=== PATIENT | male | born 1975 | race Caucasian/White ===

== ENCOUNTER 2019-04-19 20:09 | Emergency (ER) | payer MEDICAID, OTHER ==
[~2019-04-19] VITALS: Ht 162.6 cm; Wt 78.3 kg
[2019-04-19 20:16] VITALS: Ht 162.6 cm; Wt 78.3 kg
--- NOTE | 2019-04-19 22:13 | ERD ---
ER Documentation Chief Complaint Chief Complaint SWELLING OF L UPPER LIP, FACIAL PAIN X'S 3 DAYS HPI This is a 43-year-old male who presents emergency department with complaints of left upper lip swelling. Stated that this swelling started after he took Ciprodex otic drops that was prescribed by his physician 3 days ago. Denies headache, head injury, loss of consciousness, dizziness, neck pain, neck stiffness, throat pain, difficulty swallowing, difficulty breathing lying flat, shoulder pain, chest pain, back pain, abdominal pain, nausea, vomiting, constipation, diarrhea, urinary symptoms, loss of bowel and bladder control, trauma, injury, falls, difficulty walking due to pain, numbness or tingling sensation, calf pain, recent travel, recent major surgery in the last 3 weeks, calf pain, recent long travel, recent exposure to any illness, recent antibiotic use in the last 3 months, fever, chills, seizures. Past medical history: Surgical history: Social: Denies smoking, use of alcoholic beverages, use of illegal drugs. ROS All systems reviewed and are negative except as per history of present illness. Medications Home Meds Active Scripts Epinephrine (Epipen Jr 2-Diaz) 0.15 Mg/0.3 Ml Pen.injctr, 1 EA INJ ONCE PRN for ALLERGIC REACTION, #1 EA Prov:ALINAJANECHLOE Brandon 04/19/19 Famotidine* (Pepcid*) 20 Mg Tablet, 20 MG PO DAILY for 30 Days, TAB Prov:PASILABANGODWIN F 04/19/19 Ondansetron Hcl* (Zofran*) 4 Mg Tablet, 4 MG PO Q8H PRN for NAUSEA AND/OR VOMITING, #30 TAB Prov:PASMILESJANECHLOE Brandon 04/19/19 Loratadine* (Loratadine*) 10 Mg Tablet, 10 MG PO DAILY, #30 TAB Prov:PASILAVIVIANAGODWIN Taylor 04/19/19 Diphenhydramine Hcl* (Benadryl*) 25 Mg Cap, 25 MG PO Q6 PRN for ITCHING/RASH, #30 TAB Prov:PASILABANJANECHLOE F 04/19/19 Prednisone* (Prednisone*) 20 Mg Tab, 40 MG PO DAILY for 4 Days, TAB Prov:PASILABANGODWIN F 04/19/19 Allergies Allergies: Coded Allergies: Penicillins (Verified Allergy, Unknown, 04/19/19) PMhx/Soc Hx Respiratory Disorders: Yes (ASTHMA) Hx Alcohol Use: No Hx Substance Use: No Hx Tobacco Use: No Smoking Status: Never smoker Physical Exam Vitals Physical Exam Const: No acute distress Head: Atraumatic Eyes: Normal Conjunctiva. No conjunctival injection. ENT: Normal External Ears, Nose. Upper lip swelling. No tongue swelling. Able to control tongue movement. Patent airway. Tolerating secretions by mouth. No tripoding. Speaks full and clear sentences. Bilateral ears: TMs are not erythematous. No bleeding. No discharge. No hearing loss. Nose: Patent airway. No septal hematoma. Neck: Full range of motion. No meningismus. No nuchal rigidity. No signs of meningeal irritation. Resp: Clear to auscultation bilaterally. No accessory muscle use in breathing. Cardio: Regular rate and rhythm, no murmurs Abd: Soft, non tender, non distended. Normal bowel sounds. No abdominal tenderness. Skin: No petechiae or rashes. Hives noted to chest. No vesicular lesions. Color appears normal for patient. No skin tenting. No signs of severe dehydration. Back: No midline or flank tenderness Ext: No cyanosis, or edema Neur: Awake and alert. No neurological deficits. Psych: Normal Mood and Affect Results 24 hrs Current Medications Medications Dose Sig/Fabian Start Time Status Last (Trade) Ordered Route PRN Stop Time Admin Dose Reason Admin 125 mg ONCE ONCE 04/19/19 DC 04/19/19 Methylprednis IV 22:30 22:31 olone Sodium 04/19/19 22:31 Succinate (Solu-Medrol) 25 mg ONCE ONCE 04/19/19 DC 04/19/19 Diphenhydrami IV 22:30 22:31 ne HCl 04/19/19 22:31 (Benadryl) Famotidine 40 mg ONCE ONCE 04/19/19 DC 04/19/19 (Pepcid Iv) IV 22:30 22:32 04/19/19 22:31 Ondansetron 4 mg ONCE STAT 04/19/19 DC 04/19/19 HCl (Zofran IV 22:14 22:31 Inj) 04/19/19 22:19 Epinephrine 0.3 mg ONCE STAT 04/19/19 DC 04/19/19 SC 22:49 23:02 (EPINEPHrine) 04/19/19 22:51 Procedures/MDM Diagnostic tests: EKG: Normal sinus rhythm with a ventricular rate of 86 bpm. No STEMI. Read by supervising physician. Treatment: Saline lock. Solu-Medrol IV. Zofran IV. Pepcid IV. Benadryl IV. Re-evaluation: Lip swelling is decreased tremendously. Able to control tongue movement. No tongue swelling at this time. No drooling. No tripoding. Speaks full and clear sentences. No facial swelling. Differential diagnosis I have low suspicion for airway obstruction, anaphylactic shock, angioedema, peritonsillar abscess. Final diagnosis: Lip swelling. Prescription: Claritin. Zofran. Benadryl. Pepcid. Prednisone. Follow-up with PCP in the next 24-48 hours. Come back here in the emergency department for any new symptoms or any worsening symptoms. All questions and concerns were answered. Patient and family members verbalized understanding and agreed with plan of care. Hemodynamically stable on discharge. Departure Diagnosis: Primary Impression: Lip swelling Condition: Stable Additional Instructions: Follow-up with PCP in the next 24-48 hours. Come back here in the emergency department for any new symptoms or any worsening symptoms. GODWIN FULLER Apr 19, 2019 22:13
[2019-04-19] MEDS ORDERED: ONDANSETRON 4 MG INJ IV STA (22:14)
[2019-04-19] MEDS ORDERED: DIPHENHYDRAMINE 50 MG INJ IV ONE (22:30)
[2019-04-19] MEDS ORDERED: FAMOTIDINE 20 MG INJ IV ONE (22:30)
[2019-04-19] MEDS ORDERED: METHYLPREDNISOLONE 125 MG INJ IV ONE (22:30)
[2019-04-19] MEDS ORDERED: EPINEPHrine 1 MG INJ SC STA (22:49)
[2019-04-19] MEDS ORDERED: PRED20TA PO (23:28)
[2019-04-19] MEDS ORDERED: EPIN0.152 INJ (23:29)
[2019-04-19] MEDS ORDERED: LORA10TA3 PO (23:29)
[2019-04-19] MEDS ORDERED: FAMO-96 PO (23:29)
[2019-04-19] MEDS ORDERED: ONDA4TAB8 PO (23:29)
[2019-04-19] MEDS ORDERED: BEN25 PO (23:29)
[2019-04-20 01:16] VITALS: BP 99/59; PULSE 74; RESP 18
== END 2019-04-20 01:17 | disposition home or self-care (01) ==
LOC: FTE 20:09
DX: R22.0 Localized swelling, mass and lump, head (principal); J45.909 Unspecified asthma, uncomplicated
CPT/HCPCS: 93005; 96372; 96374; 96375; J0171; J1200; J2405; J2930; Z7502; Z7610

== ENCOUNTER 2019-09-07 20:51 | Emergency (ER) | payer MEDICAID, OTHER ==
[~2019-09-07] VITALS: Ht 165.1 cm; Wt 74.9 kg
[~2019-09-07 20:51] MED LIST: BEN25 PO; EPIN0.152 INJ; FAMO-96 PO; IBUP-1542 PO; LORA10TA3 PO; NPH10OT LEFT EAR; ONDA4TAB8 PO; PRED20TA PO
[2019-09-07 20:55] VITALS: Ht 165.1 cm; Wt 74.9 kg
[2019-09-07] MEDS ORDERED: IBUPROFEN 800 MG TAB PO ONE (22:00)
[2019-09-08 00:05] VITALS: BP 113/78; PULSE 59; RESP 21
== END 2019-09-08 00:05 | disposition home or self-care (01) ==
LOC: E/R 20:51
DX: R07.89 Other chest pain (principal); J45.909 Unspecified asthma, uncomplicated
CPT/HCPCS: 71045; Z7502; Z7610; 93005